=== PATIENT | female | born 1955 | race Two or more races ===

== ENCOUNTER 2022-08-06 10:33 | Outpatient (CLI) | payer OTHER ==
[~2022-08-06 10:33] MED LIST: LIPITOR20 MG PO; NABUMETONE750 MG PO; TOPROL XL25 M1 PO
== END 2022-08-06 10:36 | disposition home or self-care (01) ==
LOC: SONOGRAMA 10:33
PROVIDERS: ATTEND Pathology Anatomic Pathology & Clinical Pathology
DX: D34 Benign neoplasm of thyroid gland (principal); E04.1 Nontoxic single thyroid nodule